=== PATIENT | female | born 1960 | race Caucasian/White ===

== ENCOUNTER 2021-01-02 12:00 | Inpatient (IN) | payer OTHER ==
[~2021-01-02] VITALS: Ht 167.6 cm; Wt 117.0 kg
[2021-01-02] MEDS ORDERED: ATIVAN1 MG PO (13:55)
[2021-01-02] MEDS ORDERED: DULOXETINE HCL60 MG PO (13:56)
[2021-01-02] MEDS ORDERED: BUPRENORPHN-NA1 EACH SL (13:56)
[2021-01-02] MEDS ORDERED: HALOPERIDOL10 MG PO (13:58)
[2021-01-02] MEDS ORDERED: ZYPREXA10 MG PO (13:59)
[2021-01-02] MEDS ORDERED: SENNA8.6 MG PO (13:59)
[2021-01-02] MEDS ORDERED: GLUCOPHAGE1000 MG PO (13:59)
[2021-01-02] MEDS ORDERED: TYLENOL EXTRA500 MG PO (14:00)
[2021-01-02] MEDS ORDERED: BISACODYL10 MG PR (14:00)
[2021-01-02] MEDS ORDERED: MILK OF MA400 MG/5 M PO (14:00)
[2021-01-02] MEDS ORDERED: PEPTO-BISM262 MG/15 PO (14:01)
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
[2021-01-02] MEDS ORDERED: HALOPERIDOL5 MG PO (17:01)
[2021-01-02] MEDS ORDERED: ZYPREXA20 MG PO (17:02)
[2021-01-02] MEDS ORDERED: DRY EYE RELIEF15 ML OU (17:06)
--- NOTE | 2021-01-02 19:25 | NUR ---
bedside report received from offgoing rnjona. pt restingin bed. participates in report. redness to rle visualized with offgoing rn. remains within outlined area. pt denies further needs at this time. call light in reach.
--- NOTE | 2021-01-02 21:30 | NUR ---
PT ASSESSMENT COMPLETE. PT RESTING IN BED WITH EYES CLOSED. WAKES WHEN PROMOTIONS INTERN CALLS HER NAME. PT STATES THAT PAIN IS WELL. CONTROLLED. DENIES SOB OR NAUSEA. LUNG SOUNDS DIM IN UPPER AND LOWER LEFT LOBES. ABDOMEN WITH VERY LARGE HERNIA PRESENT. PT STATES THIS IS BASELINE. DENIES TENDERNESS AT THIS TIME. BT'S ACTIVE. PT REQUESTS TO ONLY TAKE 1 SENNA, STATES SHE ALREADY FEELS GASSY. ALLEVYN FOAM PATCHES TO L BUTTOCK/THIGH, R THIGH, AND RLE REPLACED DUE TO PREVIOUS DRESSINGS NO LONGER STICKING. REDNESS TO RLE REMAINS WITHIN OUTLINED AREA. RLE HOT TO THE TOUCH WITH EDEMA NOTED. PT REPORTS INCREASED PAIN WITH GENTLE TOUCH. PT REQUESTS PRN PAIN MEDCIATION. INFORMED PT THAT SHE HAS TYLENOL AVAILABLE TO HELP WITH PAIN. SHE STATES "NO, I WANT THE REAL STUFF." EDUCATION PROVIDED, ENCOURAGED PT TO TRY NON-OPIOID MEDCIATION FIRST. PT DECLINES. STATES THAT SHE IS GOING TO LEAVE AMA IF SHE DOES NOT GET OPIOIDS. ENCOURAGED PT TO TRY ICE PACK FOR REDNESS AND WARMTH. PT ICE PACK FOR HER LEG. PT STATES "IT'S NOT MY SKIN THAT HURTS, IT'S MY TWISTED BONE!" INFORMED PT THAT WE WILL CONTINUE TO WATCH HER CLOSELY FOR UNRELIEVED PAIN. CALL LIGHT IN PT'S REACH. PT DENIES FURTHER NEEDS AT THIS TIME.
--- NOTE | 2021-01-02 21:45 | NUR ---
V/S AND I&O TAKEN AND RECORDED. CHANGED BED LINEN. PATIENT IS CLEANED FROM INCONTINENT OF URINE. PATIENT IS REPOSITIONED AND BOOST UP TO BED BY 4 PA.
--- NOTE | 2021-01-03 00:05 | NUR ---
PT RESTING IN BED WITH EYES CLOSED. RESPIRATIONS EVEN AND UNLABORED. PT APPEARS TO BE SLEEPING. CALL LIGHT IN REACH. ROOM IN VIEW OF RN STATION.
--- NOTE | 2021-01-03 03:09 | NUR ---
3 PA CHANGED LINEN, CLEANED PATIENT AND REPOSITIONED.
--- NOTE | 2021-01-03 03:18 | NUR ---
PT ASSESSMENT COMPLETE. PT RESTING IN BED WITH EYES CLOSED. WAKES EASILY TO NAME BEING CALLED. ROUTE SALESMAN AND DRIVER INQUIRES ABOUT PT'S PAIN. PT STATES "MY ARM IS JUST A LITTLE SORE", HOLDS UP R ARM. PT FOUND WITH O2 OFF, STATES SHE FEELS "A LITTLE" SOB. SAO2 88% ON RA. O2 REPLACED AT 2 LPM, SA02 96%, O2 TITRATED TO 1LPM. EXPIRATORY WHEEZES AUSCULTATED IN ALL LUNG ARNOLD. DO NOT CLEAR WITH COUGH. PT DENIES NAUSEA. PT'S ACTIVE HUGE HERNIA ON ABD, PT DENIES TENDERNESS. RLE REDNESS WITHIN OUTLINE AREA, APPEARS LESS REDDENED THAN AT PREVIOUS ASSESSMENT. WARMTH TO AREA IS ALSO DECREASED FROM PREVIOUS ASSESSMENT. PT REPORTS THAT HER FEET ARE "JUST A LITTLE STIFF". PT INCONTINENT OF LARGE VOLUME OF URINE. ATTENDS AND BED LINENS CHANGED. ALLEVYNS TO OPEN AREAS REMAIN IN TACT. PT PROVIDED WITH CHAPSTICK AND ICE WATER PER REQUEST. DENIES FURTHER NEEDS. CALL LIGHT IN REACH.
--- NOTE | 2021-01-03 07:38 | NUR ---
PT ALERT AND INTERACTIVE AT TIME OF SHIFT EXCHANGE. RESTING IN BED DENIES NEEDS, ASKS WHEN BREAKFAST WILL ARRIVE. CALL LIGHT IN REACH.
--- NOTE | 2021-01-03 09:12 | NUR ---
PATIENT SITTING UP IN BED EATING BREAKFAST. TRIED MULTIPLE TIMES TO GET PATIENT TO GET UP TO CHAIR, PATIENT REFUSED. PATIENT REFUSED AM CARE AT THIS TIME. VITALS AND I&O'S CHARTED. CALL LIGHT IN REACH. NO FURTHER NEEDS AT THIS TIME.
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
--- NOTE | 2021-01-03 10:06 | NUR ---
SPOKE WITH JOSÉ AT [facility] WHERE PATIENT RESIDES. PATIENT IS BEDBOUND BY CHOICE, SHE REFUSES TO LET THEM GET HER UP. SHE REFUSES TO LET THEN TURN HER UNLESS THEY HAVE TO CHANGE HER ATTENDS. SHE STATES PATIENT USED TO CALL WHEN SHE SOILED HERSELF, BUT SHE WON'T DO THAT ANYMORE. PATIENT CLAIMS SHE HAS MILLIONS OF DOLLARS AND A BIG HOUSE IN [place] BUT THEY ARE NOT AWARE OF ANY VISITORS OF CALLERS. SHE DOES STATE PATIENT HAS OWN CELL PHONE. PATIENT HAS HOME HEALTH IN PLACE WITH [facility]. PATIENT GIVES CALLES TO PEOPLE THERE TO GO TO [employer] FOR HER AND BUY CANDY. SOMETIMES SEVERAL TIMES A DAY. PATIENT IS SEEN BY DR FLYNN IN HER ROOM AND PATIENT YELLS AT DR FLYNN TO GET OUT OF ROOM USUALLY BECAUSE SHE WILL NOT GIVE HER NARCOTICS. SHE IS GETTING SUBOXONE DAILY. THEY HAVE ALL EQUIPMENT NEEDED FOR HER, [facility] LIFT/WHEELCHAIRS/WALKERS BUT SHE REFUSES TO LET THEM USE ANYTHING TO GET HER UP. SHE SUGGESTS SHE MAY NEED SNF STAY AT DISCHARGE TO POSSIBLY HAVE THERAPIES WORK WITH HER TO ENCOURAGE MOVEMENT.
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
--- NOTE | 2021-01-03 11:32 | NUR ---
PT PASSES A LARGE AMOUNT OF STOOL PRAKASH CARE AND FRESH UNDERGARMENT PROVIDED. REPOSTIONED IN BED. LOOSENED ALEVYNS CHANGED AFTER SKIN CLEANSED IN THESE WOUND AREAS. PT AGREES SHE FEELS MUCH BETTER
--- NOTE | 2021-01-03 13:00 | NUR ---
pt tolerates small amount of lunch resting eyes closed now. appears comfortable left undisturbed
--- NOTE | 2021-01-03 13:16 | NUR ---
PATIENT HAD INC. PAERI CARE DONE. NEW ATTENDS IN PLACE. VITALS AND I&O'S CHARTED. CALL LIGHT IN REACH. NO FURTHER NEEDS AT THIS TIME.
--- NOTE | 2021-01-03 15:35 | NUR ---
DR SOTO IN TO SEE PT CONCERNS ADDRESSED AND ALL QUESTIONS ANSWERED
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
--- NOTE | 2021-01-03 16:00 | NUR ---
PT MOVED TO LARGER BED. PRAKASH CARE PROVIDED AND UNDERGARMENT CHANGED.
--- NOTE | 2021-01-03 16:06 | NUR ---
PT REPORTING 10/[address] ORDERED NEW MEDICAIOTNS. BUPRENORPHINE 2MG SL AND LIDOCAIN PATCH PLACED ON RIGHT KNEE. PT GAVE HAND OUT FOR BUPRINORPHINE EDUCATION ON MEDICATION AND SIDE EFFECTS. PT WITH NO QUESTIONS.
--- NOTE | 2021-01-03 17:31 | NUR ---
UNDERGARMENTS CHANGED AND PT REPOSITIONED.
--- NOTE | 2021-01-03 18:27 | NUR ---
PATIENT IN BED RESTING. PATIENT HAD INC. EPISODE, PRAKASH CARE AND SKIN CARE DONE. NEW ATTENDS IN PLACE. VITALS AND I&O'S CHARTED. CALL LIGHT IN REACH. NO FURTHER NEEDS AT THIS TIME.
--- NOTE | 2021-01-03 19:05 | NUR ---
BEDSIDE REPORT RECEIVED FROM OFFGOING RN. PT RESTING IN BED. PARTICIPATES IN REPORT. DENIES NEEDS. CALL LIGHT IN REACH.
--- NOTE | 2021-01-03 20:45 | NUR ---
2-3 PA. CHANGED BED LINEN. WIPED AND CLEANED PATIENT FROM URINE INCONTINENT. PATIENT REPOSITIONED.
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
--- NOTE | 2021-01-03 22:45 | NUR ---
CHANGED PATIENT'S ATTENDS SOEAKED WITH URINE.
--- NOTE | 2021-01-04 00:56 | NUR ---
PT UTILIZES CALL LIGHT, REQUESTS TO BE CHANGED. NEW ATTENDS PLACED. ICE WATER REFILLED. PT DENIES FURTHER NEEDS. CALL LIGHT IN REACH.
--- NOTE | 2021-01-04 03:27 | NUR ---
PATIENT'S INCONTINENT ATTENDS CHANGED.
--- NOTE | 2021-01-04 03:29 | NUR ---
PT ASSESSMENT COMPLETE. PT UTILIZES CALL LIGHT, STATES THAT SHE NEEDS HER ATTENDS CHANGED. PT DOES NOT REPORT PAIN THROUGHOUT BED MOBILITY OR DURING ASSESSMENT. PT DENIES SOB. STATES THAT SHE HAD SOME STOMACH UPSET EARLY BUT THINKS WAS DUE TO FLATUS THAT SHE WAS ABLE TO PASS. LG HERNIA PRESENT TO ABD. BT'S ACTIVE. PT DENIES TNDERNESS TO ABD. REDNESS TO RLE CONTINUES WITHIN OUTLINED AREA. WARMTH STILL PRESENT TO RLE. 2+ PITTING EDEMA TO RLE, 1+ PITTING EDEMA PRESENT TO LLE. WARM BLANKETS PROVIDED PER REQUEST. PT AGREES THAT SHE IS STARTING TO FEEL BETTER. DENIES FURTHER NEEDS AT THIS TIME. CALL LIGHT IN REACH. ROOM IN VIEW OF RN STATION.
--- NOTE | 2021-01-04 07:49 | NUR ---
PT ALERT AND ENTERACTIVE AT SHIFT EXCHANGE. RESTING IN BED MAKE NO C/O. R/T IN TO DO EKG
--- NOTE | 2021-01-04 09:15 | NUR ---
PATIENT HAD LARGE INC. PRAKASH CARE, SKIN CARE DONE. LINENS CHNAGED. VITALS AND I&O'S CHARTED. CALL LIGHT IN REACH. NO FURTHER NEEDS AT THIS TIME.
--- NOTE | 2021-01-04 10:10 | NUR ---
PT AGREES PAIN CONTROL IS GOOD WITH 'THE NEW MED THE DOC GAVE ME' AND LIDOCAIN PATCH. CONTINUES RESTING IN BED EATS 100% OF BREAKFAST. EDUCATION SPECIALIST TO SEE AND ASSESS SKIN ISSUES
--- NOTE | 2021-01-04 10:26 | NUR ---
PT IS SEEN FOR A WOUND CONSULT OF MULTIPLE WOUNDS, LOCATED ON THE RLE, RIGHT LATERAL THIGH, AND BILATERAL POSTERIOR THIGHS. THE SIZES VARY AND CAN BE FOUND UNDER WOUND COMPLEX ASSESSMENT IN INTERVENTIONS. THE RLE IS CLASSIC CELLULITIS, THE REMAINING WOUNDS WOULD BE CLASSIFIED ABRASIONS. THE BASE OF THE ABRASIONS ARE GRANULATING. THE EDGES OF THE ABRASIONS ARE ALL MACERATED, THERE IS NO UNDERMINING OR TUNNELING. THERE IS MINIMAL SEROUS EXUDATE. THERE ARE NO SIGNS OF INFECTION IN THE ABRASIONS, HOWEVER WITH THE EXTENSIVE EDEMA, REDNESS, AND WARMTH IN THE RLE THERE IS A GOOD CHANCE THERE IS AN INFECTION. THE PERIWOUND SKIN IS DRY, BUT INTACT. PT REPORTS PAIN IN HER RIGHT KNEE, BUT NOT WITH ANY WOUND CARE PROVIDED TODAY.
--- NOTE | 2021-01-04 12:17 | NUR ---
PT SITTING UP IN BED WATCHING TV, REFUSES HALDOL STATING SHE DOESN'T NEED IT. EATING LUNCH AT THIS TIME.
--- NOTE | 2021-01-04 13:48 | EKG ---
[facility] [address] [facility] [facility] [address] [place] [address] Signed Sinus tachycardia with premature atrial complexes with aberrant conduction Rightward axis Borderline ECG No previous ECGs available Confirmed by AIDAN SOTO DO ([id number]) on 01/04/2021 1:48:01 PM Electronically Signed By: AIDAN SOTO DO 01/04/21 1348 PATIENT NAME: JOE ALFARO Electrocardiogram DATE OF : 56 PHYSICIAN: AIDAN SOTO DO REPORT #: [id number] REPORT IS CONFIDENTIAL AND NOT TO BE RELEASED WITHOUT AUTHORIZATION
--- NOTE | 2021-01-04 14:32 | NUR ---
PT ASLEEP, WILL CHECK BACK
--- NOTE | 2021-01-04 15:07 | NUR ---
PT CONTINUES UP IN BED REPOSITIONED FREQUENTLY THIS SHIFT. PT CONTINUES TO CALL APPROPRIATELY FOR NEEDS OF. SHE AGREES PAIN IS WELL CONTROLLED THIS DAY DENIES FURTHER NEEDS
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
--- NOTE | 2021-01-04 17:45 | NUR ---
PATIENT IN BED WATCHING TV. SHOWER CAP USED. PRAKASH CARE DONE. VITALS AND I&O'S CHARTED. CALL LIGHT IN REACH. NO FURTHER NEEDS AT THIS TIME.
--- NOTE | 2021-01-04 19:17 | NUR ---
RECEIVED REPORT FROM DARRIAN PIZARRO. pt RESTING IN BED, TALKING ON PHONE. NO REQUESTS AT THIS TIME. WHITEBOARD UPDATED. CALL LIGHT WITHIN REACH.
--- NOTE | 2021-01-04 20:49 | NUR ---
CALL LIGHT ON. pt CHANGED. CALL LIGHT WITHIN REACH.
--- NOTE | 2021-01-04 21:18 | NUR ---
ASSESSMENT DONE AND MEDICATIONS GIVEN (SEE MAR). WOUND CARE ACCORDING TO ORDERS. pt REPORTED PAIN IN RIGHT KNEE, REFUSED PRN PAIN MEDICATION "IT'S FINE" RATED 8/10. NO FURTHER REQUESTS AT THIS TIME. CALL LIGHT WITHIN REACH.
--- NOTE | 2021-01-04 22:31 | NUR ---
VITALS DONE. pt RESTING IN BED. NO REQUESTS AT THIS TIME. CALL LIGHT WITHIN REACH.
--- NOTE | 2021-01-05 00:20 | NUR ---
ROUNDED ON pt. RESTING IN BED WITH EYES CLOSED, RESPIRATIONS REGULAR AND UNLABORED. CALL LIGHT WITHIN REACH.
--- NOTE | 2021-01-05 02:43 | NUR ---
ROUNDED ON pt. RESTING IN BED WITH EYES CLOSED, RESPIRATIONS REGULAR AND UNLABORED. CALL LIGHT WITHIN REACH.
--- NOTE | 2021-01-05 04:02 | NUR ---
ROUNDED ON pt. AWAKE. REPORTED SHE WAS INCONT OF URINE. LINENS CHANGED. PERICARE DONE. ALLEVYNS INTACT. REPOSITIONED. PROVIDED WITH COFFEE. ASSESSMENT DONE. COMPLAINED OF PAIN IN RIGHT KNEE. REFUSED PAIN MEDICATIONS AT THIS TIME. CALL LIGHT WITHIN REACH.
--- NOTE | 2021-01-05 05:44 | NUR ---
pt REQUESTED PRN PAIN MED GIVEN FOR 10/10 PAIN. NO FURTHER REQUESTS AT THIS TIME. CALL LIGHT WITHIN REACH.
--- NOTE | 2021-01-05 08:45 | NUR ---
MORNING ASSESSMENT AND MEDICATIONS GIVEN. LIDOCAINE PATCH TO RIGHT KNEE. PATIENT IS EATING BREAKFAST IN BED, GIVEN REGULAR MORNING MEDICATIONS.
--- NOTE | 2021-01-05 10:51 | NUR ---
PATIENT IS RESTING IN BED, HELPED PATIENT TO DIAL THE NUMBER FOR [facility].
--- NOTE | 2021-01-05 11:21 | NUR ---
PATIENT AWAKE IN BED, PATIENT REFUSING CHAIR FOR MEALS AND REFUSING BEDBATH. RN NOTIFIED.
--- NOTE | 2021-01-05 12:34 | NUR ---
PATIENT REFUSED NOON 5MG HALDOL, DR. JEAN IS AWARE. PATIENT INITIALLY REFUSED 3UNITS OF INSULIN FOR LUNCH MEAL COVERAGE AND THEN LATER DECIDED TO TAKE HER INSULIN. PATIENT IS AGREEABLE TO IV ANTIBIOTICS, STATING, "WELL, I HAVE TO HAVE THAT, DON'T I?" ANTIBIOTICS INFUSING AT THIS TIME.
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
--- NOTE | 2021-01-05 15:33 | NUR ---
PATIENT INCONTINENT OF URINE, ATTENDS CHANGED, PRAKASH CARE DONE. BARRIER CREAM TO EXCORIATIONS INNER THIGH, BOTH FEET AND RIGHT CALF.
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
--- NOTE | 2021-01-05 18:02 | NUR ---
PATIENT AGREED TO TAKE HALDOL THIS AFTERNOON.
--- NOTE | 2021-01-05 19:15 | NUR ---
RECEIVED REPORT FROM DARRIAN HAYS. JUNIOR MECHANICAL ENGINEER IN ROOM ASSISTING pt. CALL LIGHT WITHIN REACH.
--- NOTE | 2021-01-05 20:23 | NUR ---
CALL LIGHT ANSWERED. ASSISTED TO USE TELEPHONE. NO ADDITIONAL REQUESTS.
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
--- NOTE | 2021-01-05 22:07 | NUR ---
PRIMARY RN NOTIFIES THAT pt REQUESTING TO TALK TO MUNITIONS HANDLER SUPERVISOR. GAS FITTER HELPER IN ROOM. pt STATES "I DON'T WANT TO TALK TO YOU, I WANT TO TALK TO THE PERSON OVER THIS WHOLE HOSPITAL". pt UPSET THAT PRIMARY RN ADMINISTERED INSULIN AND SHE DOESN'T NEED IT. EDUCATION PROVIDED, pt RAISING VOICE, VISIBLY UPSET. RN OUT OF ROOM. MUNITIONS HANDLER SUPERVISOR NOTIFIED.
--- NOTE | 2021-01-05 23:47 | NUR ---
ROUNDED ON pt. RESTING IN BED WITH EYES CLOSED, RESPIRATIONS REGULAR AND UNLABORED. CALL LIGHT WITHIN REACH.
--- NOTE | 2021-01-06 02:03 | NUR ---
ROUNDED ON pt. RESTING IN BED WITH EYES CLOSED, RESPIRATIONS REGULAR AND UNLABORED. CALL LIGHT WITHIN REACH.
--- NOTE | 2021-01-06 02:45 | NUR ---
pt INCONT OF URINE. DEPENDS CHANGED. PERICARE DONE. ALLEVYN'S INTACT. BARRIER CREAM APPLIED. pt PLEASANT ASSISTED WITH TURNING. WARM BLANKETS PROVIDED. POSSESSIONS AND CALL LIGHT WITHIN REACH.
--- NOTE | 2021-01-06 06:23 | NUR ---
pt RESTING IN BED AWAKE. REPORTED SLEEPING WELL. VITALS DONE. DEPENDS CHANGED. REPOSITIONED. PROVIDED FRESH COFFEE AND WATER. NO FURTHER REQUESTS AT THIS TIME. CALL LIGHT WITHIN REACH.
--- NOTE | 2021-01-06 07:15 | NUR ---
Report received, orders acknowledged. Patient laying in bed awake, call light within reach.
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
--- NOTE | 2021-01-06 08:40 | NUR ---
Patient laying in bed, watching tv. Patient reports pain of 9/10 in right knee, requesting scheduled pain medication. Patient is calm and relaxed in bed, no grimacing noted. AM medications given. Vital signs taken, assessment complete. Patient reports being bedbound for the last four years, denies offer to kareem to chair for breakfast. POC discussed for day, patient agreeable. Breakfast delivered, patient reports "my pain feels better now." No IV access noted with patient, plan to place a new IV. Patient denies further needs, call light within reach.
--- NOTE | 2021-01-06 09:11 | NUR ---
NUTRITION CONSULT GENERATED FROM WOUNDS, THOUGH HER WOUNDS ARE ABRASIONS PER REVIEW OF WOUND NURSE NOTES. PATIENT IS OBESE, HAS DIABETES AND SCHIZOPHRENIA. SHE IS ON A 60 GM CONSISTENT CARB DIET WHICH IS APPROPRIATE. SHE HAS A GOOD APPETITE. BLOOD SUGARS IMPROVING. NO NUTRITION INTERVENTION DONE AT THIS TIME. WILL CONTINUE TO MONITOR.
--- NOTE | 2021-01-06 10:00 | NUR ---
Received orders from Dr Delgado for dc. Spoke with RN and pt can be ready for dc at 11!5. Called [facility] and they agree to return at 11:15. Called [facility] and they will transport pt at 1115 to [facility]. Rn notified. Nonemergent transport paperwork completed and placed with Dc orders and Rx in an eveleope at the desk. Requested RN call for nurse to nurse as requested by [facility].
--- NOTE | 2021-01-06 10:30 | NUR ---
Dr. Delgado in room to discuss POC and assess patient
[2021-01-06] MEDS ORDERED: SULFAMETHOXAZO1 EAC1 PO (10:33)
[2021-01-06] MEDS ORDERED: BUPRENORPHN-NA1 EACH SL (10:34)
[2021-01-06] MEDS ORDERED: ATIVAN1 MG PO (10:35)
[2021-01-06] MEDS ORDERED: LANTUS100 UNITS/ SUB-Q (10:36)
--- NOTE | 2021-01-06 11:00 | NUR ---
Called and gave report to [facility]
--- NOTE | 2021-01-06 11:20 | NUR ---
EMS crew arrived to transport patient to [facility]
--- NOTE | 2021-01-06 13:06 | NUR ---
Notified by [facility], EMS did not leave packet and they are out of town now. Requested copy of chart faxed with dc summary. Chart faxed, but informed I cannot fax the RX as it shows voided. They are ok with this as EMS will bring the packet when they return to town.
== END 2021-01-06 11:25 | disposition home or self-care (01) | DRG 872 ==
LOC: ED 12:00 → MS 15:33
PROVIDERS: ADMIT Student in an Organized Health Care Education/Training Program; ATTEND Student in an Organized Health Care Education/Training Program
DX: A41.51 Sepsis due to Escherichia coli [E. coli] (principal); N39.0 Urinary tract infection, site not specified; L03.115 Cellulitis of right lower limb; F11.20 Opioid dependence, uncomplicated; Z68.41 Body mass index [BMI] 40.0-44.9, adult; Z20.822 Contact with and (suspected) exposure to COVID-19; E66.01 Morbid (severe) obesity due to excess calories; F20.9 Schizophrenia, unspecified; E11.9 Type 2 diabetes mellitus without complications; G89.29 Other chronic pain; M17.11 Unilateral primary osteoarthritis, right knee; Z74.01 Bed confinement status; Z88.5 Allergy status to narcotic agent; Z79.899 Other long term (current) drug therapy; Z79.84 Long term (current) use of oral hypoglycemic drugs; Z88.8 Allergy status to other drugs, medicaments and biological substances
CPT/HCPCS: 36415; 51701; 71045; 80048; 80053; 81001; 83036; 83605; 83880; 85025; 85610; 85651; 85730; 87040; 87077; 87088; 87186; 93005; 93010; 99285-25; A9270; J0696; J1650; J1815; J7121; U0003

== ENCOUNTER 2021-04-04 07:24 | Inpatient (IN) | payer OTHER ==
[~2021-04-04] VITALS: Ht 167.6 cm; Wt 159.0 kg
[~2021-04-04 07:24] MED LIST: ATIVAN1 MG PO; BISACODYL10 MG PR; BUPRENORPHN-NA1 EACH SL; DRY EYE RELIEF15 ML OU; DULOXETINE HCL60 MG PO; GLUCOPHAGE1000 MG PO; HALOPERIDOL10 MG PO; HALOPERIDOL5 MG PO; LANTUS100 UNITS/ SUB-Q; MILK OF MA400 MG/5 M PO; PEPTO-BISM262 MG/15 PO; SENNA8.6 MG PO; SULFAMETHOXAZO1 EAC1 PO; TYLENOL EXTRA500 MG PO; ZYPREXA10 MG PO; ZYPREXA20 MG PO
[2021-04-04] MEDS ORDERED: BASAGLAR K100 UNIT/1 SUB-Q (07:34)
--- NOTE | 2021-04-04 15:01 | EKG ---
[facility] [address] [place] [address] Signed Sinus tachycardia with occasional premature ventricular complexes Left posterior fascicular block Nonspecific ST abnormality Abnormal ECG When compared with ECG of 04-JAN-2021 07:38, premature ventricular complexes are now present aberrant conduction is no longer present Confirmed by BIA JEAN MD ([id number]) on 04/04/2021 3:01:33 PM Electronically Signed By: BIA JEAN MD 04/04/21 1501 PATIENT NAME: JOE ALFARO Electrocardiogram DATE OF : 56 PHYSICIAN: BIA JEAN MD REPORT #: [id number] REPORT IS CONFIDENTIAL AND NOT TO BE RELEASED WITHOUT AUTHORIZATION
--- NOTE | 2021-04-05 06:12 | CONS ---
[facility] [address] [place], [place] [address] Signed DATE OF CONSULTATION: 04/04/2021 CHIEF COMPLAINT: Vomiting and diarrhea. HISTORY OF PRESENT ILLNESS: Francheska is a 61-year-old obese diabetic female, who apparently has some type of injury for chronic pain to the right leg. She apparently does not stand. She resides at [facility]. From what I can tell, she lays in bed most of the time. She quit smoking a year ago and has lost quite a bit of weight. She has chronic left-sided abdominal hernia. Apparently, they would not operate on that years ago because she was so morbidly obese. However, she developed vomiting diarrhea last night. She came to emergency room for evaluation. White count is elevated at 19.8 with left shift. Lactic acid is not performed. She is COVID negative. Blood sugars are elevated. She underwent a CT scan of abdomen and pelvis and most of the small and large bowel out into the hernia. At least half the stomach out into the hernia. Therefore, she appears to have loss of abdominal domain. She also has compression fractures at T11, L1, and L4. We had made efforts to contact [facility] They are happy to accept her, except there are no beds on this holiday weekend. In that regard, I have been asked to admit her as a local general surgeon for ongoing conservative management until a bed opens up. PAST MEDICAL HISTORY: Type 2 diabetes, schizophrenia, depression, anxiety, insomnia, borderline personality disorder, narcissistic personality disorder, peripheral neuropathy, opioid abuse, hypertension, hyperlipidemia, constipation, morbid obesity, chronic pain right leg, and inability to stand. PAST SURGICAL HISTORY: Includes tonsillectomy, adenoidectomy, bilateral tubal ligation, and hysterectomy. SOCIAL HISTORY: She quit smoking 1 year ago. She does not drink. She resides at [facility]. She is to Emil at [phone]. Dr. Denice Bruner is her primary care provider. She has no preferred pharmacy. I suspect she gets all her medications through [facility]. FAMILY HISTORY: Not reviewed. REVIEW OF SYSTEMS: I did my best to review 10 systems with Francheska, but she is not the best historian. Most of it was obtained from the chart. Electronically Signed By: ZEUS DURÁN MD 04/05/21 0612 PATIENT NAME: FRANCHESKA ALFARO CONSULTATION DATE OF : 56 REPORT #: [id number] PHYSICIAN: ZEUS DURÁN MD PCP: DENICE BRUNER MD REPORT IS CONFIDENTIAL AND NOT TO BE RELEASED WITHOUT AUTHORIZATION [facility] [address] [place], [place] [address] Signed ALLERGIES: Morphine and codeine. MEDICATIONS: 1. Buprenorphine. 2. Naloxone. 3. Ativan. 4. Duloxetine. 5. Haldol. 6. Zyprexa. 7. Metformin. 8. Tylenol. 9. Bisacodyl. 10. Magnesium hydroxide. 11. Pepto-Bismol. 12. Insulin. PHYSICAL EXAMINATION: VITAL SIGNS: Her blood pressure is 217/187, her heart rate is 134, respiratory rate 25. Her temperature is 97.3 degrees. She is 91% on 2 L nasal cannula. She is 5 feet, 6 inches tall at 116 kg. GENERAL: Francheska is a 61-year-old female, lying supine in her hospital bed. She is morbidly obese, although she says she has lost a lot of weight. She is not the best historian. LUNGS: Generally clear to auscultation bilaterally. HEART: Tachycardic. ABDOMEN: Morbidly obese. I can see a large left-sided abdominal wall hernia even through the sheets. It is clear that most her abdomen is out in this hernia. It is certainly not reducible. LABORATORY DATA: Her white blood cell count is 19.8, hemoglobin 13, neutrophils 80. Bands are 10, glucose 387, BUN 14, creatinine 0.58. COVID negative. INR 0.9. Liver function tests are negative. Albumin is 3.7. RADIOGRAPHIC STUDIES: A CT scan of the abdomen and pelvis is reviewed along with the report. She has most of the small and large bowels out into this left abdominal wall hernia with at least half of the stomach in the hernia as well. She has a compression fracture of T11, L1, and L4. She has small cyst in the right kidney. ASSESSMENT/PLAN: Francheska is a 61-year-old female, who presents with what appears to be a small bowel Electronically Signed By: ZEUS DURÁN MD 04/05/21 0612 PATIENT NAME: FRANCHESKA ALFARO CONSULTATION DATE OF : 56 REPORT #: [id number] PHYSICIAN: ZEUS DURÁN MD PCP: DENICE BRUNER MD REPORT IS CONFIDENTIAL AND NOT TO BE RELEASED WITHOUT AUTHORIZATION [address] [address] Signed obstruction in a chronic left abdominal wall hernia. Bowel obstruction does not appear necessary to be from the hernia and it is quite wide-mouth. Exactly where the transition point is hard to know for sure. She is clearly not a surgical candidate at our small [facility]bed critical [facility]. She thinks maybe she is a DNR/DNI, but she is not sure. Nevertheless, we are going to admit her for conservative measures and we are waiting for a bed to open at our [facility]. I have reviewed this with Francheska in detail. She has expressed understanding and agrees to above plan. Given her comorbidities, we are going to ask our Internal Medicine Service to see her and they will initially put her in their ICU for close monitoring and proceed from there. She has expressed understanding and agrees to above plan. Zeus Durán MD ALB/MODL /[id number] cc: MD Denice Lundberg MD Chart Filed Incomplete Copies: ZEUS DURÁN MD CHART FILED INCOMPLETE ~ Electronically Signed By: ZEUS DURÁN MD 04/05/21 0612 PATIENT NAME: FRANCHESKA ALFARO CONSULTATION DATE OF : 56 REPORT #: [id number] PHYSICIAN: ZEUS DURÁN MD PCP: DENICE BRUNER MD REPORT IS CONFIDENTIAL AND NOT TO BE RELEASED WITHOUT AUTHORIZATION
[2021-04-05] MEDS ORDERED: ATIVAN1 MG PO (10:28)
[2021-04-05] MEDS ORDERED: ARTIFICIAL TEAR15 M4 OU (10:37)
--- NOTE | 2021-04-06 06:05 | OR ---
[facility] [address] [place], [place] [address] Signed DATE OF OPERATION: 04/05/2021 SURGEON: Zeus Durán MD PREOPERATIVE DIAGNOSES: 1. Small-bowel obstruction versus gastric outlet obstruction. 2. Upper gastrointestinal bleed. 3. Anemia. 4. Vomiting. 5. Chronic large left abdominal wall hernia with loss of abdominal domain. POSTOPERATIVE DIAGNOSES: 1. Distal gastric ulcer/ischemia. 2. Acute on chronic distal esophagitis. PROCEDURES: Esophagogastroduodenoscopy without biopsy. ESTIMATED BLOOD LOSS: None. INDICATIONS: Francheska is a 61-year-old obese diabetic female, who also suffers with schizophrenia. She has recently moved out from the [facility] to an extended care facility in [place], [place]. She had developed some vomiting and diarrhea the day prior to admission. She came to the emergency room for evaluation. Her white count was up at 19.8 with a hemoglobin around 13. Her BUN was fine at 14. Her glucose was up at 387. COVID was negative. Lactic acid was up around 2.8. She had a CT scan which showed this large hernia containing probably half the stomach, most of the large and small bowel as well. The parts of the distal stomach we could not see on the CT scanner as it was off the field. However, her stomach was quite dilated and full of fluid. An NG tube had been place and returned dark almost melanotic type material. She was hydrated and started on antibiotics. We did have our Internal Medicine Service see her as well. This morning, her hemoglobin is gone down to around 10.8. She does not appear any more ill than previously. Unfortunately, our other laboratory work was not back including a followup lactic acid. A followup lactic acid last night was only down around 2.7. Her urine output has fallen off a little bit this morning. Consequently, we increased the IV fluids. I had met with Francheska and had reviewed all this in detail. I also spoke with her son, Ashu. She apparently is a DNR/DNI, but she wanted to proceed at least with upper endoscopy to evaluate her stomach. She is well aware that she is an extremely Electronically Signed By: ZEUS DURÁN MD 04/06/21 0605 PATIENT NAME: FRANCHESKA ALFARO OPERATIVE REPORT DATE OF : 56 REPORT #: [id number] PHYSICIAN: ZEUS DURÁN MD PCP: DENICE FLYNN MD REPORT IS CONFIDENTIAL AND NOT TO BE RELEASED WITHOUT AUTHORIZATION [facility] [address] [place] [id number] Signed high risk surgical candidate. If surgery necessary, she would need to be at a tertiary referral center. In addition, because of her medical condition and her body habitus, we needed an anesthesia provider to help us with increased monitoring sedation with propofol. She had expressed understanding and wished to proceed. She understands there is risk to upper endoscopy including but not limited to gas bloating, crampy abdominal pain, bleeding, perforation requiring surgery, and missed diagnosis. DESCRIPTION OF PROCEDURE: Francheska was taken in the endoscopy suite and placed in the supine semi-recumbent position. We left the NG tube in place. A bite block was utilized. She was given IV sedation with propofol per our nurse classification inspector. The adult gastroscope was introduced and advanced under direct visualization of camera. She has some acute on chronic irritation around the GE junction. She does have a very large stomach. Her anatomy is distorted, but eventually into the distal stomach. When we turned, we found an ischemic and/or ulcerated area with very dark clotted blood. At one point, we came through that and into a normal-appearing pyloric bulb. When the scope was withdrawn, it popped back into the stomach, we never could find a way back into that area. No active bleeding currently. The rest of stomach was unremarkable. We withdrew the scope back up through the stomach in the area of the GE junction. The middle and upper esophagus were unremarkable. After this, the gas was suctioned out and the gastroscope removed. Francheska tolerated procedure quite well. RECOMMENDATIONS: Francheska will be returned to our ICU. In the meantime, we will contact our medical school and give them an update. Zeus Durán MD ALB/MODL /[id number] cc: MD Denice Lundberg MD Electronically Signed By: ZEUS DURÁN MD 04/06/21 0605 PATIENT NAME: FRANCHESKA ALFARO OPERATIVE REPORT DATE OF : 56 REPORT #: [id number] PHYSICIAN: ZEUS DURÁN MD PCP: DENICE FLYNN MD REPORT IS CONFIDENTIAL AND NOT TO BE RELEASED WITHOUT AUTHORIZATION [address] [address] Signed Copies: ZEUS DURÁN MD ~ Electronically Signed By: ZEUS DURÁN MD 04/06/21 0605 PATIENT NAME: FRANCHESKA ALFARO OPERATIVE REPORT DATE OF : 56 REPORT #: [id number] PHYSICIAN: ZEUS DURÁN MD PCP: DENICE FLYNN MD REPORT IS CONFIDENTIAL AND NOT TO BE RELEASED WITHOUT AUTHORIZATION
[2021-04-07] MEDS ORDERED: CEFTRIAXONE2 G1 IV (15:28)
[2021-04-07] MEDS ORDERED: METOPROLOL5 MG/5 M2 IV (15:28)
[2021-04-07] MEDS ORDERED: METRONIDAZ500 MG/100 IV (15:28)
[2021-04-07] MEDS ORDERED: BUPRENORPHINE HC2 MG SL (15:29)
[2021-04-07] MEDS ORDERED: ACETAMINOPHEN650 MG PR (15:29)
[2021-04-07] MEDS ORDERED: PROTONIX IV40 MG IV (15:31)
[2021-04-07] MEDS ORDERED: HUMULIN R100 UNIT/1 SUB-Q (15:31)
[2021-04-07] MEDS ORDERED: ONDANSETRON4 MG/2 M1 IV (15:31)
--- NOTE | 2021-04-08 06:26 | DS ---
[facility] [address] [place], [place] [address] Signed ADMISSION DATE: 04/04/2021 DISCHARGE DATE: 04/07/2021 FINAL DIAGNOSES: 1. Chronic large ventral abdominal wall hernia. 2. Gastric outlet obstruction with ischemia. 3. Anemia. PROCEDURE: 1. EGD without biopsies. 2. CT scan of the abdomen and pelvis. HISTORY OF PRESENT ILLNESS: Francheska is a 61-year-old obese diabetic female, who suffers with schizophrenia. She had been placed at one of our local extended care facilities in the last year or so. She has been known to have chronic abdominal wall hernia. Most likely, this is an umbilical hernia. She lived in the [facility] for many years. Due to her obesity, diabetes, and smoking, she was not able to undergo repair of this hernia. She then had developed vomiting and diarrhea and was brought to our local emergency room. She was dehydrated and required resuscitation. She had dark coffee-ground like material from her NG tube. We therefore took her for endoscopy the following day. She had ischemic area in the distal half of the stomach. Most of the blood had been suctioned out of the stomach. I did make it into the pylorus with the camera, but not beyond. The pyloric channel was fine. The CT scan showed most of the small bowel, most of the large bowel and at least half the stomach in the hernia. We have been unable to reduce these hernia. We continued her resuscitation and maintain her on antibiotics. At this point, she is in need of surgical care. She is clearly a candidate for tertiary referral center. In that regard, we called [facility]. Dr. Basil Zamorano was kind enough to accept her in transfer. We have been waiting in the last few days for a bed to [facility] up at the [facility]. That is now become available. We are now making arrangements to have her transfer down today with respect to her hernia and gastric outlet obstruction. I have been talking with Francheska every day as well as her son, Ashu. They are aware of this plan and we will proceed in that direction. Of course, we are happy to see her in followup here locally when she is [facility] from the medical school. She and her son have expressed understanding and agreed with the above plan. Zeus Durán MD Electronically Signed By: ZEUS DURÁN MD 04/08/21 0626 PATIENT NAME: FRANCHESKA ALFARO DISCHARGE SUMMARY DATE OF : 56 REPORT #: [id number] PHYSICIAN: ZEUS DURÁN MD PCP: DENICE BRUNER MD REPORT IS CONFIDENTIAL AND NOT TO BE RELEASED WITHOUT AUTHORIZATION [address] [address] Signed ALB/MODL /[id number] cc: Zeus Durán MD [facility] Denice Bruner MD Copies: ZEUS DURÁN MD ~ Electronically Signed By: ZEUS DURÁN MD 04/08/21 0626 PATIENT NAME: FRANCHESKA ALFARO DISCHARGE SUMMARY DATE OF : 56 REPORT #: [id number] PHYSICIAN: ZEUS DURÁN MD PCP: DENICE BRUNER MD REPORT IS CONFIDENTIAL AND NOT TO BE RELEASED WITHOUT AUTHORIZATION
== END 2021-04-07 16:30 | disposition short-term general hospital (02) | DRG 380 ==
LOC: ED 07:24 → CCU 07:25
PROVIDERS: ADMIT Colon & Rectal Surgery; ATTEND Colon & Rectal Surgery
PROC: 0DJ08ZZ Inspection of Upper Intestinal Tract, Via Natural or Artificial Opening Endoscopic (ICD-10-PCS; principal; 2021-04-05 08:30)
PROC: 30233N1 Transfusion of Nonautologous Red Blood Cells into Peripheral Vein, Percutaneous Approach (ICD-10-PCS; 2021-04-06)
DX: K31.1 Adult hypertrophic pyloric stenosis (principal); K25.4 Chronic or unspecified gastric ulcer with hemorrhage; S22.080A Wedge compression fracture of T11-T12 vertebra, initial encounter for closed fracture; S32.010A Wedge compression fracture of first lumbar vertebra, initial encounter for closed fracture; S32.040A Wedge compression fracture of fourth lumbar vertebra, initial encounter for closed fracture; Z68.43 Body mass index [BMI] 50.0-59.9, adult; K43.6 Other and unspecified ventral hernia with obstruction, without gangrene; D50.0 Iron deficiency anemia secondary to blood loss (chronic); Z20.822 Contact with and (suspected) exposure to COVID-19; I99.8 Other disorder of circulatory system; K20.90 Esophagitis, unspecified without bleeding; E11.42 Type 2 diabetes mellitus with diabetic polyneuropathy; E86.0 Dehydration; E66.01 Morbid (severe) obesity due to excess calories; E87.6 Hypokalemia; E83.42 Hypomagnesemia; D72.829 Elevated white blood cell count, unspecified; G89.29 Other chronic pain; M79.604 Pain in right leg; F11.10 Opioid abuse, uncomplicated; I10 Essential (primary) hypertension; E78.5 Hyperlipidemia, unspecified; F60.81 Narcissistic personality disorder; F60.3 Borderline personality disorder; G47.00 Insomnia, unspecified; F41.9 Anxiety disorder, unspecified; F32.9 Major depressive disorder, single episode, unspecified; F20.9 Schizophrenia, unspecified; Z66 Do not resuscitate; Z79.899 Other long term (current) drug therapy; Z88.5 Allergy status to narcotic agent; Z87.891 Personal history of nicotine dependence; Z79.84 Long term (current) use of oral hypoglycemic drugs; Z74.01 Bed confinement status
CPT/HCPCS: 36415; 36430; 43752; 51702; 71045; 74177; 80048; 80053; 81001; 83605; 83735; 83880; 84100; 84134; 85018; 85025; 85610; 85730; 86850; 86900; 86901; 86920; 87040; 93005; 93010; 96365; 96366; 96367; 96375; 96376; 99285-25; C9113; C9803; G0378; J0696; J1630; J1815; J2001; J2060; J2405; J2550; J2704; J3475; J3480; J7030; J7060; J7121; P9016; Q9967; U0003

== ENCOUNTER 2021-09-15 17:48 | Emergency (ER) | payer OTHER ==
[~2021-09-15] VITALS: Ht 167.6 cm; Wt 135.8 kg
[~2021-09-15 17:48] MED LIST changes: +ACETAMINOPHEN650 MG PR; +ARTIFICIAL TEAR15 M4 OU; +BASAGLAR K100 UNIT/1 SUB-Q; +BUPRENORPHINE HC2 MG SL; +CEFTRIAXONE2 G1 IV; +HUMULIN R100 UNIT/1 SUB-Q; +METOPROLOL5 MG/5 M2 IV; +METRONIDAZ500 MG/100 IV; +ONDANSETRON4 MG/2 M1 IV; +PROTONIX IV40 MG IV
[2021-09-15] MEDS ORDERED: ATIVAN1 MG PO (22:54)
[2021-09-15] MEDS ORDERED: CYMBALTA60 MG PO (22:55)
[2021-09-15] MEDS ORDERED: HALOPERIDOL10 MG PO (22:56)
[2021-09-15] MEDS ORDERED: OMEPRAZOLE20 MG PO (22:59)
[2021-09-15] MEDS ORDERED: MIRALAX119 GM PO (23:00)
[2021-09-15] MEDS ORDERED: TRULICITY1.5 MG/0.5 SUB-Q (23:01)
[2021-09-15] MEDS ORDERED: METFORMIN HCL1000 M1 PO (23:03)
[2021-09-15] MEDS ORDERED: DULCOLAX10 MG PR (23:05)
[2021-09-15] MEDS ORDERED: MILK OF MA400 MG/5 M PO (23:06)
[2021-09-15] MEDS ORDERED: PEPTO-BISM262 MG/15 PO (23:07)
--- NOTE | 2021-09-16 22:28 | EKG ---
[facility] [address] [facility] [place] [address] Signed Sinus tachycardia with premature atrial complexes Right axis deviation Nonspecific ST abnormality Abnormal ECG When compared with ECG of 04-APR-2021 14:21, premature ventricular complexes are no longer present premature atrial complexes are now present Nonspecific T wave abnormality now evident in Anterior leads Confirmed by AIDAN SOTO DO ([id number]) on 09/16/2021 10:27:59 PM Electronically Signed By: AIDAN SOTO DO 09/16/21 2228 PATIENT NAME: JOE ALFARO Electrocardiogram DATE OF : 56 PHYSICIAN: AIDAN SOTO DO REPORT #: [id number] REPORT IS CONFIDENTIAL AND NOT TO BE RELEASED WITHOUT AUTHORIZATION
== END 2021-09-16 08:33 | disposition short-term general hospital (02) ==
LOC: ED 17:48
DX: S72.401A Unspecified fracture of lower end of right femur, initial encounter for closed fracture (principal); N39.0 Urinary tract infection, site not specified; E11.42 Type 2 diabetes mellitus with diabetic polyneuropathy; I10 Essential (primary) hypertension; E78.5 Hyperlipidemia, unspecified; Z87.891 Personal history of nicotine dependence; Z88.5 Allergy status to narcotic agent; Z79.899 Other long term (current) drug therapy; Z79.84 Long term (current) use of oral hypoglycemic drugs; Z20.822 Contact with and (suspected) exposure to COVID-19; W06.XXXA Fall from bed, initial encounter
CPT/HCPCS: 29505; 51702; 71045; 73552; 73590; 80053; 81001; 85025; 85610; 87088; 87186; 93005; 93010; 99285-25; C9803; J0696; J1170; J2405; J3480; U0003